=== PATIENT | male | born 1955 | race Caucasian/White ===

== ENCOUNTER 2024-03-07 08:15 | Outpatient (CLI) | payer MEDICARE | END 2024-03-07 08:16 | disposition home or self-care (01) | LOC: CSHSLEEP 08:15 | PROVIDERS: ATTEND Internal Medicine | DX: N52.9 Male erectile dysfunction, unspecified (principal); G47.00 Insomnia, unspecified; R35.1 Nocturia; G47.33 Obstructive sleep apnea (adult) (pediatric) | CPT/HCPCS: 95800 ==